=== PATIENT | male | born 1955 | race Caucasian/White ===

== ENCOUNTER → 2016-08-12 | Outpatient (CLI) | payer MEDICARE, MEDICAID ==
[~2016-08-12] MED LIST: GADOBUTROL 10mMol/10ml INJECTION IV ONE; SALINE FLUSH 10ml SYRINGE ONE
--- NOTE | 2016-08-13 08:13 | DI ---
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 Contrast: 9 mL of Gadavist FINDINGS: Limited exam due to motion artifact. Postcraniotomy changes in the right temporal region. There is a T2 hyperintense enhancing mass involving the medial anterior temporal lobe. This has heterogeneous enhancement measuring 3.7 x 3 x 3.4 cm in overall size. This causes mass effect upon the midbrain and some effacement of the right suprasellar cistern. There is surrounding vasogenic edema. No other enhancing masses identified. There is mild volume loss in the right temporal lobe which is probably due to prior surgery. There is mild dilatation of the right temporal horn. Ventricles are otherwise normal. There are no areas of restricted diffusion to suggest an acute infarct. There is no evidence of an intracranial hemorrhage, or hydrocephalus. The visualized portions of the orbits, calvarium, paranasal sinuses, and skull base otherwise demonstrate no significant abnormality. 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 .
== END ==
LOC: IMA 15:22
PROVIDERS: ATTEND Internal Medicine Hematology & Oncology
DX: R90.89 Other abnormal findings on diagnostic imaging of central nervous system (principal); C71.9 Malignant neoplasm of brain, unspecified
CPT/HCPCS: 70553; A9585

== ENCOUNTER → 2016-09-01 | Outpatient (CLI) | payer MEDICARE, MEDICAID ==
--- NOTE | 2016-09-01 13:32 | DI ---
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 Noncontrast concurrent CT scanning was performed for attenuation correction and localization purposes only. These images do not constitute a diagnostic quality CT examination and are not used to diagnose disease independently of the PET images. A glucose level before injection was 117 mg/dl. FINDINGS: Postoperative changes of right pterional craniotomy an prior partial right temporal resection. Redemonstration of an approximately 4 x 3 cm medial right temporal lobe mass which demonstrates heterogeneous attenuation on the localizer CT. FDG activity is seen within this region as well as the surrounding brain parenchyma, with the maximum SUV in the region of the mass of approximately 141 and maximum SUV within other areas of the cortex measuring up to 162. IMPRESSION: Previously identified approximately 4 x 3 cm medial right temporal lobe mass demonstrates FDG activity of a similar to slightly lesser degree than the expected surrounding normal stevens matter hypermetabolic uptake. .
== END ==
LOC: IMA 08:19
PROVIDERS: ATTEND Internal Medicine Hematology & Oncology
DX: C71.2 Malignant neoplasm of temporal lobe (principal); M54.5 Low back pain; R10.9 Unspecified abdominal pain
CPT/HCPCS: 78608; A9552

== ENCOUNTER → 2016-09-02 | Outpatient (CLI) | payer MEDICARE, MEDICAID ==
--- NOTE | 2016-09-02 13:19 | DI ---
Indication: ITS.REASON: C71.2; M54.5 LOW BACK PAIN; R10.9 ABD PAIN PROCEDURE: CT CHEST/ABDOMEN/PELVIS W/O: Encounter: Subsequent Comparison: None Technique: Axial CT images were performed through the chest, abdomen and pelvis without intravenous contrast. Coronal and sagittal two-dimensional reformats. Automated Exposure Control and Iterative Reconstruction dose reducing techniques were utilized. Findings: Chest: The lungs are grossly clear. No pneumonia, pleural effusion or pneumothorax. The central airways are patent. No axillary or mediastinal lymphadenopathy by CT criteria. Coronary artery calcifications in all three vessels. Heart size is normal. No pericardial effusion. Abdomen/pelvis: The unenhanced contours of the liver, gallbladder, spleen, pancreas and adrenal glands are within normal limits. The kidneys are unremarkable. No abdominal or pelvic lymphadenopathy. Bladder is within normal limits. Prostate and rectum are unremarkable. No free fluid. The appendix is normal. Postoperative and degenerative changes in the lumbar spine. No gross lytic or blastic osseous lesion. Impression: No acute disease process seen. No metastatic disease identified in the chest, abdomen or pelvis. .
--- NOTE | 2016-09-02 16:01 | DI ---
Indication: ITS.REASON: C71.2; M54.5 LOW BACK PAIN; R10.9 ABD PAIN PROCEDURE: NM BONE SCAN, WHOLE BODY: Encounter: Subsequent Comparison: CT chest, abdomen and pelvis from today Technique: 24.1 mCi of Tc-99m MDP was administered intravenously. Anterior and posterior planar whole-body and spot images were obtained. FINDINGS: The scan demonstrates the expected normal biodistribution for the radiotracer. There is probable degenerative uptake seen in the shoulders, knees and mid feet. Focal uptake in the right fifth anterior rib at the costochondral cartilage junction corresponds to a subacute healing rib fracture seen on the comparison CT. There is no abnormal radiotracer uptake to suggest bony metastasis. IMPRESSION: No evidence of metastatic disease to the skeleton. Posttraumatic right anterior fifth rib uptake. .
== END ==
LOC: IMA 12:05
PROVIDERS: ATTEND Internal Medicine Hematology & Oncology
DX: C71.2 Malignant neoplasm of temporal lobe (principal); M54.5 Low back pain; R94.8 Abnormal results of function studies of other organs and systems
CPT/HCPCS: 71250; 74176; 78306; A9503